=== PATIENT | female | born 1995 | race Caucasian/White ===

== ENCOUNTER 2025-06-08 13:57 | Outpatient (CLI) | payer BC, SELFPAY ==
[2025-06-09 14:47] LABS: Strep B DNA Probe POSITIVE (Negative)
[2025-06-09 16:46] LABS: Strep B Susceptibility Needed? No
== END 2025-06-08 13:58 | disposition home or self-care (01) ==
LOC: NFLDREF 13:57
PROVIDERS: Visit Provider Midwife
DX: Z34.93 Encounter for supervision of normal pregnancy, unspecified, third trimester (principal)
CPT/HCPCS: 87081; 87653

== ENCOUNTER 2025-07-06 22:16 | Inpatient (IN) | payer BC, SELFPAY ==
[2025-07-06] VITALS (8 sets, daily range): BP systolic 135–139; BP diastolic 81–94; PULSE 77–84; RESP 16–20; TEMP 36.6–36.9; O2SAT 97–98; BMI 32.9
--- NOTE | 2025-07-06 17:31 | P.LDBA_ITS ---
Subjective History of Present Illness Narrative: David is a 30 yo at 40 3/7 weeks admitted to Labor and Delivery for PROM. Please see this for details. Specific Issues/Plans Tx at 30.2 weeks gestation from [facility]? BLIND WEIGHTS. It is a girl! Partner:?? Bob H&P completed by Pennie Belle on 06/14/25?? #Anxiety on lexapro 5mg # Migraines with aura using metoclopramide PRN ?? # Pelvic pain, seeing PT # GBS positive, review antibiotic recommendation in labor OB Labs: ? Blood type: A+, antibody screen negative. ? Hgb: 13.3, 11.8 (04/19) ? Platelets: 250 ? Hgb electrophoresis: normal Rubella: Immune ? Varicella: non immune-offer post RPR: non-reactive ? HBsAg: non-reactive ? Hep C: negative HIV: negative ? UC: negative GC/Chlamydia: negative/negative ? Pap: 01/24/2022 NILM Genetic screening: low risk, neg carrier 1hr gtt: 137? ? IMAGING: ? 1st trimester: ?11/22/24 Single IUP at 8w 1 d with CURTIS of 07/03/25 by US and LMP Anatomy scan: 02/18/25 Incomplete FAS follow up to better evaluate four chamber heart, LVOT, 3 vessel trachea view and cardiac situs. ? Others: 03/16/25 Single IUP at 24w 3d gestation. Follow up shows normal four chamber heart, LVOT, 3 vessel trachea view and cardiac situs. Pap due PP COVID: initial series, declined booster Flu: does not get flu shots Tdap:04/19/25 RSV: 06/08/2025 OB - Problem Based A/P Additional Plan (1) PROM (premature rupture of membranes): Status: Acute (2) Group B Streptococcus carrier, antepartum: Status: Acute (3) 40 weeks gestation of : Status: Acute (4) Anxiety: Status: Acute Plan ASSESSMENT:? 30 at 40.3 weeks gestation? complicated by:?Anxiety (on Lexapro), migraines, pelvic pain Labor type: Spontaneous, early labor? Category 1 FHR pattern.?? Labor complicated by: PROM with + GBS GBS positive? ? PLAN:? 1. Routine intrapartum cares as ordered. Continue with expectant management?at this time. Discussed 6 hours of expectant management and then considering augmentation due to GBS + status. Patient is agreeable, she prefers cytotec over pitocin. Recommended evaluating around 830 pm. 2. Monitoring per policy, intermittent? 3. Planning unmedicated . Desires water . Consent signed. Hep C negative. Candidate for analgesia of choice.?? 4. Patient encouraged to reposition and ambulate to promote physiologic labor and .? 5. GBS prophylaxis initiated for GBS positive status. Will treat with antibiotics per protocol. 6. Anticipate ? Delivery/Labor/Induction Plan Plan: expectant management OB Exam Physical Exam Vital signs: Pulse BP Pulse Ox 80 135/81 97 07/06/25 16:41 07/06/25 16:41 07/06/25 16:43 Narrative: Vitals Reviewed Constitutional:? Alert and oriented x3 HEENT:? Normocephalic, atraumatic Neck:? Supple Lungs:? Clear to auscultation bilaterally Heart:? Regular rate and rhythm, no murmur, rub or gallop Abdomen:? Soft, nontender, and gravid. Vertex by Alfred's, confirmed with cervical exam. Extremities:? No edema or erythema Cervix: 1.5 cm/50%/-2 station/vertex NST: 145 bpm/moderate variability/15x15 accelerations/no decelerations/contractions every 1-3 palpating mild Detailed Labor and Delivery Exam Patient Gravid: yes
[2025-07-06 17:49] LABS: Hematocrit* 38.5 % (33.0-51.0); Hemoglobin* 13.1 gm/dL (12.0-16.0); Immature Granulocytes Abs Auto 0.01 K/uL (0.00-0.30); Immature Granulocytes Pct Auto 0.1 %; Mean Corpuscular HGB Conc 34 gm/dL (32-36); Mean Corpuscular Hemoglobin 32 pg (26-34); Mean Corpuscular Volume 93 fL (80-100); RDW Coefficient of Variation % 12.0 % (11.5-15.5); Red Blood Count* 4.14 m/uL (4.00-5.20); White Blood Count* 8.91 K/uL (4.50-11.00)
[2025-07-06 17:52] LABS: Lymphocytes Absolute Auto 1.40 K/uL (0.90-2.90); Slide Review Reflex No
[2025-07-06] MEDS: LACTATED RINGERS 1000 ML 1,000 ML 125 ML IV (17:58)
[2025-07-06] MEDS: AMPICILLIN 2 GM in 0.9 % SODIUM CHLORIDE Mini-bag 100 ML IVPB (17:59)
[2025-07-06] MEDS: AMPICILLIN 1 GM in 0.9 % SODIUM CHLORIDE Mini-bag 100 ML IVPB (21:53)
[2025-07-06] MEDS: SODIUM CHLORIDE 0.9 % (FLUSH) 10 ML SYRINGE IVF (21:53)
[2025-07-07] VITALS (44 sets, daily range): BP systolic 115–150; BP diastolic 67–95; PULSE 70–116; RESP 16–20; TEMP 36.5–37.1; O2SAT 97–100
[2025-07-07] MEDS: ACETAMINOPHEN 500 MG TABLET 1000 MG PO (01:10)
[2025-07-07] MEDS: SODIUM CHLORIDE 0.9 % (FLUSH) 10 ML SYRINGE IVF ×2 (02:14→06:32)
[2025-07-07] MEDS: AMPICILLIN 1 GM in 0.9 % SODIUM CHLORIDE Mini-bag 100 ML IVPB ×3 (02:14→10:26)
[2025-07-07] MEDS: OXYTOCIN 30 unit/500 ML in NS 30 UNIT/500 ML BAG IVPB (07:19)
--- NOTE | 2025-07-07 09:05 | PM.OBPNL ---
Subjective Time Seen by Provider: 08:50 Date Seen: 07/07/25 Narrative: David received 2 doses of Cytotec overnight but baby showed some signs of not tolerating with variables and early decelerations so the decision was made to discontinue and switch to IV Pitocin titration. This was started at 0720 this morning. She continued to have tata and variables with most contractions but did continue to have good variability and accelerations. Position changes did improve but not resolve the tracing so the decision was made to discontinue the Pitocin for now. Encouraged labor warm up of So circuit to help promote positioning. She is feeling most of her contractions in her back so potentially a better position could improve the tracing. Will continue to monitor the strip and restart the Pitocin titration when it improves. She continues to leak clear fluid. We discussed the possibility of a delivery if we are unable to augment but that it is not needed at this time. Objective Vital Signs: Last Vital Signs Temp 98.2 F 07/07/25 08:30 Pulse 80 07/07/25 07:26 Resp 16 07/07/25 04:15 BP 137/75 07/07/25 07:26 Pulse Ox 98 07/07/25 09:03 Contractions Monitor mode: External Contraction pattern: Irregular Assessment Assessment: early labor Amniotic Membrane Status: SROM Status: Category ll Heart Rate Baseline: 130 Professional Benefits Sales Consultant Variability: Moderate (6-25) Monitor Accelerations: Present Monitor Decelerations: Variable (and early ) Plan Plan: ASSESSMENT:? 31 at 40.4 weeks gestation? complicated by:?Anxiety (on Lexapro), migraines, pelvic pain Labor type: Early labor, PROM > 12 hours Category 2 FHR pattern.?? Labor complicated by: PROM with + GBS, intolerance to augmentation GBS positive? ? PLAN:? 1. Routine intrapartum cares as ordered. Pitocin titration discontinued at this time due to FHR tracing. Encouraged circuit and restart Pitocin when able. Reviewed increased risk for delivery given the current FHR tracing and difficulty augmenting. 2. Monitoring continuous. 3. Planning unmedicated but considering an epidural. Candidate for analgesia of choice.?? 4. Patient encouraged to reposition and ambulate to promote physiologic labor and .? 5. Continue GBS prophylaxis for GBS positive status per protocol. 6. Anticipate ?
--- NOTE | 2025-07-07 12:39 | P.OBPN_ITS ---
Subjective Time Seen by Provider: 12:30 Date Seen: 07/07/25 Narrative: David is a G1 at 40w3d here status post SROM 07/06 at 1430. Labor is being augmented. Slow progress. strip has normal rate and moderate variablility but many variable decels and more recently lates. Pitocin has been started twice and turned off twice at only 2mL/hr d/t intolerance. David is having some back labor now and appreciates hip squeeze and conterpressure as well as holding 's hand through contractions. She is still able to have conversation with just momentary pauses for contractions. Movie Critic requested cervical check to see progress considering status and duration of rupture. She is agreeable. ADEN Toth Objective Exam: Objective: Constitutional: Alert and oriented x3, mild distress, coping well Vital signs stable, see nurse documentation Abdomen: gravid, contractions palpate moderate and soft between Cervix: 2 cm/90%/-2 station/vertex NST: 135 bpm/ moderate variability/accelerations present/variable and early decelerations/contractions irregular- not monitoring well. 4-8min? Vital Signs: Last Vital Signs Temp 98.2 F 07/07/25 12:13 Pulse 83 07/07/25 12:13 Resp 16 07/07/25 04:15 BP 138/84 07/07/25 12:13 Pulse Ox 99 07/07/25 12:06 Comments: Anterior fontanelle palpated near maternal pubic bone. No sutures palpated. Suspect OP and ascynclitic position. Contractions Monitor mode: External Contraction pattern: Irregular Contraction intensity: Moderate Pitocin Rate (mU/min): 0 Assessment Assessment: induction ongoing Status: Category ll Heart Rate Baseline: 140 Mcfp Variability: Moderate (6-25) Monitor Accelerations: Present Tracing Comments: Moderate variability. Most contractions have variable decelerations. Some late decelerations seen this morning as well. Labor Progress: Minimal. Slight cervical change. 22 hours since SROM. No s/s infection. Maternal Status: Coping well Plan Plan: Plan ASSESSMENT:? 30 at 40.3 weeks gestation? complicated by:?Anxiety (on Lexapro), migraines, pelvic pain Labor type: Spontaneous, early labor? Category 2 FHR pattern.?? Labor complicated by: PROM with + GBS GBS positive? Prolonged rupture of membranes ? PLAN:? 1. Discussed possibility of c- section and answered questions as baby doesn't seem to be tolerating labor augmentation and duration of rupture. Options to wait and see what happens vs. reattempt pitocin vs. now. Patient elects to reattempt pitocin. 2. Nurse to assist with more position changes including inversion to see if baby can get in better position 3. EFM strip is decent and IV pitocin attempted again 4. Continuous monitoring 5. Continue antibiotics every 4 hours for GBS treatment 6. on call pharmacy technician OB, Dr. Mitchell updated and consulted on case 7. Planning unmedicated . Desires water . Consent signed. Hep C negative. Candidate for analgesia of choice.?? 8. Anticipate ?but aware that may need I, Jennifer Zepeda, MARTI, CNM, was present for visit and have reviewed and agree with documentation by the Certified Nurse Midwifery Student.?
--- NOTE | 2025-07-07 14:34 | PM.OBPNL ---
Subjective Time Seen by Provider: 14:30 Date Seen: 07/07/25 Narrative: We have continued to attempt labor augmentation. She is melly some and feeling them in her back but is able to talk through them and feels they have not increased significantly over the coarse of the day. Offered SVE but she declines as she is not feeling that anything has changed significantly. We have now tried to augment with Pitocin without success three times. Each time once we increase to 2mU/hr she develops recurrent decelerations and most recently many were late decelerations. We again reviewed the option to continue to try to augment labor with position changes to promote a better position and FHR tracing vs a non emergent delivery. Risks and benefits of each were reviewed and questions answered. She would like to proceed with a section. Dr. Mitchell was consulted, report given, and she will see the patient at this time to evaluate. Objective Vital Signs: Last Vital Signs Temp 98.7 F 07/07/25 13:02 Pulse 75 07/07/25 13:02 Resp 16 07/07/25 04:15 BP 132/80 07/07/25 13:02 Pulse Ox 97 07/07/25 12:52 Contractions Monitor mode: External Contraction Frequency: 2-5 Contraction pattern: Irregular Contraction intensity: Moderate Assessment Assessment: early labor Amniotic Membrane Status: SROM Status: Category ll Heart Rate Baseline: 130 Monitor Accelerations: Present Monitor Decelerations: Late (and variables) Plan Plan: ASSESSMENT:? 31 at 40.4 weeks gestation? complicated by:?Anxiety (on Lexapro), migraines, pelvic pain Labor type: Early labor, PROM >24 hrs Category 2 FHR pattern.?? Labor complicated by: PROM with + GBS, intolerance to augmentation with late decelerations GBS positive, well treated? ? PLAN:? 1. Reviewed option for continuing to attempt to augment labor vs a section. She would like to proceed with a delivery. Dr. Mitchell consulted and will assume care.
[2025-07-07] MEDS: LACTATED RINGERS 1000 ML 1,000 ML 125 ML IV (14:37)
[2025-07-07] MEDS: AZITHROMYCIN 500 MG in 0.9 % SODIUM CHLORIDE 250 ml 250 ML 255 MG IVPB (14:38)
--- NOTE | 2025-07-07 16:15 | PM.OBPRCCS ---
Procedure Date of procedure: 07/07/25 Pre-op diagnosis: intolerance of labor Prolonged rupture of membranes 40 weeks, 4 days gestational age Post-op diagnosis: same Procedure Done: Global Will [facility] bill your pro fee for this procedure?: Yes Blood Loss Measurement Type: QBL (825) Bakri Used: No IV fluids (mL): 1,400 Urine Output (mL): 200 Surgeon: Mercedes Mitchell MD Anesthesia Type: Spinal Findings: 1. Female , cephalic OP presentation, Apgars of 8 and 9, weight 3745 g 2. Normal appearance of uterus, bilateral tubes and ovaries Procedure Name: Primary low-transverse section Procedure Description: PROCEDURE IN DETAIL: Patient was taken to the operating room with IV running. She received cefazolin and azithromycin in preoperative prophylaxis. Spinal anesthesia was administered. Lopez catheter was inserted. She was prepped and draped in the usual sterile fashion. Anesthesia was tested and found to be adequate. A low-transverse skin incision was made with a scalpel and carried through to the underlying layer of fascia with the scalpel. The subcutaneous fat was dissected off the underlying fascia with Bovie. The fascia was nicked in the midline with a scalpel, and this incision was extended laterally with scissors. The rectus muscles were in the midline. Peritoneum was identified and entered bluntly. Bovie was used to widen this opening laterally. Jf O retractor was inserted and tightened down, providing excellent visualization of the lower uterine segment. The bladder reflection was found to be well below the planned site for hysterotomy. Low-transverse uterine incision was made with a scalpel. Incision was widened bluntly. The infant's head was grasped through the hysterotomy and delivered with the help of fundal pressure. The remainder of the body delivered without incident. Cord was clamped and cut after 30 seconds. was handed off to attending nurses. The placenta was delivered with gentle traction on the cord. The uterus was exteriorized and cleaned of all clots and debris with the dry lap pad. Initially, some uterine atony was noted, which was addressed with IV Pitocin, a single dose of 0.2 mg of IM Methergine, and 1 g of tranexamic acid. The hysterotomy was reapproximated with 0 Vicryl in a running, locked fashion. Second layer of the same suture was used in imbricating fashion to obtain hemostasis. The adnexa were examined and noted to be normal in appearance. The cul-de-sac was cleansed with laparotomy sponge, removing clots and debris. The uterus was returned to the abdomen. The pelvic gutters were cleansed with laparotomy sponge, removing clots and debris. The Jf O retractor was removed. The hysterotomy was reexamined and found to be hemostatic. The peritoneum was reapproximated with 2 0 Vicryl in a running fashion. The rectus muscles were examined and found to be hemostatic. The fascia was reapproximated with 0 Vicryl in a running fashion. Subcutaneous fat was irrigated and Bovie used on oozing vessels. The subcutaneous fat was reapproximated with 2 0 plain gut suture in an interrupted fashion. The skin was closed with a subcuticular stitch of 4-0 Monocryl. Surgical glue was applied above this. Patient tolerated procedure well was taken to recovery area in stable condition. Complications: None Pathology: specimen obtained, sent to pathology (Placenta) Surgery Debrief Performed: No Surgery Debrief Comment: Postoperative debrief was verbalized with OR staff, including a verification of pathology specimens to be sent as described above. Disposition: floor
--- NOTE | 2025-07-07 16:37 | P.ANES_ITS ---
Anesthesia Charges Start Date/Time Anesthesia Start Date: 07/07/25 Anesthesia Start Time: 15:03 Stop Date/Time Anesthesia Stop Date: 07/07/25 Anesthesia Stop Time: 16:27 Summary Emergency: FINANCIAL RECORDING CLERK Coding CPT Codes CPT Codes: ANESTH CS DELIVERY - 85356 ([id number]) P2 - PATIENT W/MILD SYST DISEASE, QZ - FINANCIAL RECORDING CLERK SVC W/O MOISTURE METER OPERATOR BY Additional Codes: Summary - Emergency: FINANCIAL RECORDING CLERK ([id number])
--- NOTE | 2025-07-07 16:37 | W.ANESCHARGE ---
Anesthesia Charges Start Date/Time Anesthesia Start Date: 07/07/25 Anesthesia Start Time: 15:03 Stop Date/Time Anesthesia Stop Date: 07/07/25 Anesthesia Stop Time: 16:27 Summary Emergency: MULTIMEDIA ENGINEER Coding CPT Codes CPT Codes: ANESTH CS DELIVERY - 49712 ([id number]) P2 - PATIENT W/MILD SYST DISEASE, QZ - MULTIMEDIA ENGINEER SVC W/O SACK FILLER BY Additional Codes: Summary - Emergency: MULTIMEDIA ENGINEER ([id number])
--- NOTE | 2025-07-07 16:38 | P.NB_ITS ---
Nerve Block Nerve Block Time Seen by Provider: 16:20 Date Seen: 07/07/25 Type of block requested by surgeon for post-operative analgesia: TAP Side: bilateral Time out performed: Yes Verification of patient name: Yes Verification of date of : Yes Name of person performing procedure: Bob Lindquist Continuous monitoring Was continuous monitoring of O2 sat, B/P, environmental monitoring specialist, recorded every 15 minutes?: Yes Procedure Checklist: sterile prep, needles and gloves Ultrasound guided. Images saved: Yes Medications given in 5ml increments after negative aspiration: Marcaine %: 0.25 mL: 30 Needle gauge: 22 and Exparel mL: 10 Needle gauge: 22 Patient tolerated procedure well: Yes Block Charges Block Charge (with Pro Fee): TAP Bilateral Use of Ultrasound Machine for Block: Yes- US Guidance/pain block
[2025-07-07 19:52] LABS: Hematocrit* 37.1 % (33.0-51.0); Hemoglobin* 12.6 gm/dL (12.0-16.0); Mean Corpuscular HGB Conc 34 gm/dL (32-36); Mean Corpuscular Hemoglobin 32 pg (26-34); Mean Corpuscular Volume 94 fL (80-100); Red Blood Count* 3.94 m/uL (4.00-5.20); White Blood Count* 13.42 K/uL (4.50-11.00)
[2025-07-07 20:01] LABS: Slide Review Reflex No
[2025-07-07 20:09] LABS: Blood Urea Nitrogen* 10 mg/dL (5-24); Creatinine* 0.6 mg/dL (0.5-1.5); Est. Creatinine Clearance* 112.38; Estimated Glomerular Filt Rate 123 ml/min
[2025-07-07 20:10] LABS: Alanine Aminotransferase* 19 U/L (4-35); Aspartate Amino Transferase* 36 U/L (12-35)
[2025-07-07] MEDS: ESCITALOPRAM 10 MG TABLET 5 MG PO (20:48)
[2025-07-07 21:47] LABS: Protein Creatinine Ratio Urine 0.18 (0-0.19)
[2025-07-08 00:13] VITALS: BP 125/77; PULSE 95; RESP 16; TEMP 37; O2SAT 97
[2025-07-08] MEDS: LANOLIN CREAM 1 APPLIC TOPICAL (01:05)
[2025-07-08 04:20] VITALS: BP 118/71; PULSE 90; RESP 16; TEMP 37.1; O2SAT 98
[2025-07-08 06:31] LABS: Hematocrit* 34.2 % (33.0-51.0); Hemoglobin* 11.5 gm/dL (12.0-16.0); Immature Granulocytes Abs Auto 0.02 K/uL (0.00-0.30); Immature Granulocytes Pct Auto 0.2 %; Mean Corpuscular HGB Conc 34 gm/dL (32-36); Mean Corpuscular Hemoglobin 32 pg (26-34); Mean Corpuscular Volume 96 fL (80-100); RDW Coefficient of Variation % 12.1 % (11.5-15.5); Red Blood Count* 3.58 m/uL (4.00-5.20); White Blood Count* 10.73 K/uL (4.50-11.00)
[2025-07-08 06:40] LABS: Lymphocytes Absolute Auto 0.90 K/uL (0.90-2.90); Slide Review Reflex No
[2025-07-08 06:57] LABS: Alanine Aminotransferase* 14 U/L (4-35); Aspartate Amino Transferase* 34 U/L (12-35); Blood Urea Nitrogen* 10 mg/dL (5-24); Creatinine* 0.6 mg/dL (0.5-1.5); Est. Creatinine Clearance* 112.38; Estimated Glomerular Filt Rate 123 ml/min
[2025-07-08 08:29] VITALS: BP 118/79; PULSE 99; RESP 16; TEMP 36.6; O2SAT 98
[2025-07-08] MEDS: DOCUSATE SODIUM 100 MG CAPSULE PO (09:53)
--- NOTE | 2025-07-08 13:11 | PM.OBPNVD1 ---
OB - PN:Subj Subjective Time Seen by Provider: 12:49 Date Seen: 07/08/25 Patient comments OB post-: no complaints, pain well controlled and tolerating diet [place] infant status: and doing well [place] feeding status: exclusively Narrative: Day 1:? Delivery at 40 and 4/7 weeks.? ?? Complications:? none? David feels well.? Her pain is well controlled with current medications.? She has no new complaints.? Urinary output is adequate and she is voiding without difficulty.? Has a good appetite, is tolerating a general diet, is passing flatus, and has not had a bowel movement.? Has moderate amount of rubra lochia.? She is ambulating well.?Pt requests changing administration time for Lexapro to hs from qAM, as she normally takes it before bed. OB - PN: Obj Exam Physical Exam: Vital signs: Temp Pulse Resp BP Pulse Ox O2 Del Method 97.8 F 99 16 118/79 98 Room Air 07/08/25 08:29 07/08/25 08:29 07/08/25 08:29 07/08/25 08:29 07/08/25 08:29 07/08/25 08:29 Narrative: GENERAL APPEARANCE:? normal affect, alert, no distress? MOOD:? appropriate? CHEST:? clear to auscultation and percussion? HEART:? regular rate and rhythm? BREASTS: soft, nontender, no erythema, nipples intact? ABDOMEN:? soft, non-tender the uterine fundus is firm and is appropriate for the stage of recovery. Incision is covered by a dressing, which is C/D/I.? PERINEUM:? mild edema of the perineum.? EXTREMITIES:? normal and no edema? OB - PN: Obj Data Labs Labs: Laboratory Results - last 24 hr 07/07/25 07/07/25 07/08/25 19:36 20:44 05:56 WBC 13.42 H 10.73 RBC 3.94 L 3.58 L Hgb 12.6 11.5 L Hct 37.1 34.2 MCV 94 96 MCH 32 32 MCHC 34 34 RDW Coeff of Keith 12.1 Plt Count 202 194 Neut % (Auto) 81.3 H Lymph % (Auto) 8.7 L [place] % (Auto) 8.4 Eos % (Auto) 1.3 Baso % (Auto) 0.1 Neut # (Auto) 8.70 H Lymph # (Auto) 0.90 [place] # (Auto) 0.90 Eos # (Auto) 0.14 Baso # (Auto) 0.01 Abs Immat Gran (auto) 0.02 Imm/Tot Granulo (auto) 0.2 BUN 10 10 Creatinine 0.6 0.6 Estimated Creat Clear 112.38 112.38 Estimated GFR 123 123 AST 36 H 34 ALT 19 14 Urine Creatinine 82.8 Protein/Creatinin Ratio 0.18 Urine Total Protein 15 OB - PN: A/P Delivery Assessment and Plan (1) care following delivery: Status: Acute Assessment and Plan: 30 year old on day 1.? 1. cares.? 2. Anticipate discharge tomorrow.? (2) Lactating mother: Status: Acute (3) Anxiety: Status: Acute Plan day: 1 Plan: routine care
[2025-07-08 14:16] VITALS: BP 111/71; PULSE 88; RESP 16; O2SAT 98
[2025-07-08] MEDS: ESCITALOPRAM 5 MG 5 EACH PO (20:50)
[2025-07-08 20:58] VITALS: BP 130/83; PULSE 84; RESP 18; TEMP 36.8; O2SAT 98
[2025-07-09 03:04] VITALS: BP 117/75; PULSE 79; RESP 18; TEMP 36.6; O2SAT 98
[2025-07-09] MEDS: ACETAMINOPHEN 500 MG TABLET 1000 MG PO (03:09)
[2025-07-09 08:30] VITALS: BP 119/78; PULSE 80; RESP 16; TEMP 36.9; O2SAT 99
--- NOTE | 2025-07-09 08:53 | P.OBPN_ITS ---
OB - PN:Subj Subjective Date Seen: 07/09/25 Patient comments OB post-: no complaints, pain well controlled, tolerating diet and flatus present [place] status: and doing well [place] feeding status: exclusively Narrative: David feels well.? Her pain is well controlled with current medications.? She has no new complaints.? Urinary output is adequate and she is voiding wit hout difficulty.? Has a good appetite, is tolerating a general diet, is passing flatus, and has not had a bowel movement.? Has scant amount of rubra lochia.? She is ambulating well.?She is and feels it is going ok but baby is sleepy for some feeds. Has concerns about feedings and babies weight loss. She would like to stay until tomorrow for additional support. Blood pressures have been stable on her current dose of Nifedipine. OB - PN: Obj Exam Physical Exam: Vital signs: Temp Pulse Resp BP Pulse Ox O2 Del Method 97.9 F 79 18 117/75 98 Room Air 07/09/25 03:04 07/09/25 03:04 07/09/25 03:04 07/09/25 03:04 07/09/25 03:04 07/09/25 03:04 Narrative: GENERAL APPEARANCE:? normal affect, alert, no distress? MOOD:? appropriate? CHEST:? clear to auscultation and percussion? HEART:? regular rate and rhythm? BREASTS: soft, nontender, no erythema, nipples intact? ABDOMEN:? soft, non-tender the uterine fundus is U/2 and is appropriate for the stage of recovery. Incision well approximated without drainage or erythema.? EXTREMITIES:? normal and no edema? OB - PN: Obj Data Labs Labs: Laboratory Results - last 24 hr 07/06/25 17:30 RPR Screen Non Reactive OB - PN: A/P Delivery Assessment and Plan (1) care following delivery: Status: Acute (2) Lactating mother: Status: Acute (3) Anxiety: Status: Acute (4) Gestational hypertension: Status: Acute Plan day: 2 Plan: routine care Comments: Anticipate discharge home tomorrow.
[2025-07-09] MEDS: DOCUSATE SODIUM 100 MG CAPSULE PO (10:02)
[2025-07-09] MEDS: IBUPROFEN 600 MG TABLET PO ×2 (16:41→22:16)
[2025-07-09 17:00] VITALS: BP 129/77; PULSE 71; RESP 16; TEMP 36.9; O2SAT 98
[2025-07-09 20:11] VITALS: BP 126/78; PULSE 80; RESP 16; TEMP 36.5; O2SAT 98
[2025-07-09] MEDS: ESCITALOPRAM 5 MG 5 EACH PO (21:27)
[2025-07-09 23:37] VITALS: BP 117/80; PULSE 80; RESP 16; TEMP 36.6; O2SAT 98
[2025-07-10 05:14] VITALS: BP 120/83; PULSE 71; RESP 14; TEMP 36.7; O2SAT 97
[2025-07-10] MEDS: IBUPROFEN 600 MG TABLET PO (09:27)
[2025-07-10] MEDS: DOCUSATE SODIUM 100 MG CAPSULE PO (09:27)
[2025-07-10 09:30] VITALS: BP 127/81; PULSE 72; RESP 16; TEMP 37; O2SAT 98
--- NOTE | 2025-07-10 12:46 | P.DS_ITS ---
DS: Providers Provider Date Seen: 07/10/25 Date of admission: 07/06/25 22:16 Primary care physician: Not a Local Provider Admitting Clinician: Michelle Das CNM Consults: 07/07/25 14:34 Consult to Physician [CONS] Routine Comment: Consulting Provider: Mercedes Mitchell Has provider been notified: Yes Attending Physician on discharge: Michelle Das CNM Date of Discharge: 07/10/25 DS: Diagnosis Discharge Diagnosis (1) Gestational hypertension: Status: Acute (2) Lactating mother: Status: Acute (3) care following delivery: Status: Acute (4) Anxiety: Status: Acute (5) Migraine with aura: Status: Acute Exam Narrative: Exam Narrative: GENERAL APPEARANCE:? normal affect, alert, no distress? MOOD:? appropriate? CHEST:? clear to auscultation and percussion? HEART:? regular rate and rhythm? BREASTS: soft, nontender, no erythema, nipples intact? ABDOMEN:? soft, non-tender the uterine fundus is u/3 and is appropriate for the stage of recovery. Incision well approximated without drainage, erythema, or edema.? EXTREMITIES:? normal and no edema? Const: Vital Signs, click to edit/add: Vital Signs - 24 hr 07/09/25 17:00 07/09/25 20:11 07/09/25 23:37 Temperature 98.4 F 97.7 F 97.9 F Pulse Rate [Pulse Oximeter] 71 80 80 Respiratory Rate 16 16 16 Blood Pressure [Ri ght Arm] 129/77 126/78 117/80 Pulse Oximetry 98 98 98 Oxygen Delivery Me thod Room Air Room Air Room Air 07/10/25 05:14 07/10/25 09:30 Temperature 98.0 F 98.6 F Pulse Rate [Pulse Oximeter] 71 72 Respiratory Rate 14 16 Blood Pressure [Ri ght Arm] 120/83 127/81 Pulse Oximetry 97 98 Oxygen Delivery Me thod Room Air Room Air Documenting provider has reviewed patient's vital signs: yes OB - DS: Summary Hospital Course Hospital Course: David is a 30 y.o. G 1 P 1 who was admitted to [facility]OM. ?She had a section for intolerance that was uncomplicated. The patient feels well. ?The pain is well controlled with current medications. She has not taken Oxycodone and declines the need for a prescription.?She has no new complaints. ?She is breast feeding and reports things are going ok. States that some feeds are good but other she is too sleep. She has a f/u appointment this week. the patient has done well.? Vitals have been stable on Nifedipine. She will be sent a prescription for a blood pressure cuff as we are out on the unit. She should check her blood pressure at home twice a day.? She has remained afebrile.? Has a good appetite, is tolerating a general diet. ?She is voiding without difficulty.? She is passing gas and has not had a bowel movement.? She is ambulating and denies any dizziness.? Has small amount of rubra lochia. She is uncertain what she is planning for prevention. considering condoms but also reviewed other options. Peripartum Data Infant delivery method: Primary C/S; Labored Procedures: Procedures Operation Date: 07/07/25 15:00 Actual Procedure Side Surgeon p Section Not Applicable Mercedes Mitchell MD complications: none [place] Gender: Female Infant Discharge Plan: Home Status at Discharge Functional status at discharge: independent ambulation Overall status at discharge: patient is progressing back to baseline Time Spent with Patient Time attestation: Total time spent providing and/or coordinating discharge services: Discharge Plan Discharge Disposition: Home, Self-Care Date of Admission: 07/06/25 22:16 Attending Provider on Discharge: Jennifer Zepeda Consulting Providers: Mercedes Mitchell Primary Care Provider: Provider,Not a Local Condition: Stable Anticipated Discharge Date/Time: 07/10/25 14:00 Discharge Medications: New docusate sodium 100 mg Capsule 100 mg PO DAILY Qty: 120 0RF Rx Instructions: Take 1-2 tablets daily as needed for constipation. ibuprofen 600 mg Tablet 600 mg PO Q6H PRN (Reason: Pain) Qty: 120 0RF nifedipine 30 mg Tablet Extended Release 30 mg PO BID Qty: 120 0RF (DME) Blood Pressure Cuff Misc See Rx Instructions .Route Qty: 1 0RF Rx Instructions: As directed Continued metoclopramide HCl 5 mg tablet 5 mg PO ONCE escitalopram oxalate 5 mg tablet 5 mg PO QDAY cholecalciferol (vitamin D3) 100 mcg (4,000 unit) tablet 100 mcg PO QDAY One-A-Day -1 27 mg iron- 800 mcg-235 mg capsule 1 cap PO DAILY Tylenol Extra Strength 500 mg powder in packet 500 mg PO Q6H PRN Discontinued Unisom (doxylamine) 25 mg tablet 25 mg PO QHS PRN Discharge Orders: Discharge Order (Routine); Ordered 07/10/25 Ordered By: Jennifer Zepeda Patient Education: Bupivacaine Liposome (By injection), OB High Blood Pressure DC, OB /Breast Feeding Additional Instructions: Discharge instructions were reviewed with the patient including signs and symptoms of infection and home going medications Lifting Restrictions: 20 pounds for 6 weeks No not submerge incision under water X 2 weeks? Nothing vaginally for 6 weeks: no tampons or intercourse Do not drive while taking narcotic pain medication(s) Off Work or School for 8 weeks Symptoms to report to doctor: * Bleeding that saturates more than one pad per hour * Passing clots larger than the size of a golf ball * Pain not relieved by prescribed medication * Fever above 100.4 degrees Fahrenheit * A foul vaginal odor * Difficulty in emotions, mood, and functions * Thoughts of hurting yourself and/or * Painful, reddened area in your breast * Any drainage, redness, or tenderness in your IV/epidural site * Severe headache that doesn't improve after taking medications * Changes in vision, including temporary loss of vision, blurred vision, and/or light sensitivity * Upper abdominal pain (usually under ribs on the right side) * Decrease in urination or painful, frequent urinating * Chest pain * Shortness of breath * Tenderness or pain with redness and/swelling in the calf(s) of your leg [facility] for a BP and medication check in 3-5 days Call with BP greater than or equal to 160/110 2-week visit: incision check, blood pressure check, discuss infant feeding concerns, review control options and screen for anxiety/depression. 6-week visit for an annual exam. consultation services are available to all mothers and babies for the first year after delivery.? To make an appointment, please call [phone]. Activity Level: No strenuous activity Discharge Diet: Regular Follow Up Appointments: Provider,Not a Local [Primary Care Provider, Family Practice] [facility] [Provider Group] Forms: MyHealth Info Instructions
== END 2025-07-10 14:55 | disposition home or self-care (01) | DRG 540 ==
LOC: OB OUT 22:16 → OB 22:16
PROVIDERS: Obstetrics & Gynecology; Admitting Provider Advanced Practice Midwife; Visit Provider Advanced Practice Midwife
PROC: 10D00Z1 Extraction of Products of Conception, Low, Open Approach (ICD-10-PCS; CPT 59514; principal; 2025-07-07 15:00)
DX: O42.12 Full-term premature rupture of membranes, onset of labor more than 24 hours following rupture (principal); O76 Abnormality in fetal heart rate and rhythm complicating labor and delivery; O13.5 Gestational [pregnancy-induced] hypertension without significant proteinuria, complicating the puerperium; G89.18 Other acute postprocedural pain; O99.820 Streptococcus B carrier state complicating pregnancy; O99.344 Other mental disorders complicating childbirth; G43.109 Migraine with aura, not intractable, without status migrainosus; F41.9 Anxiety disorder, unspecified; Z3A.40 40 weeks gestation of pregnancy; Z37.0 Single live birth
CPT/HCPCS: 01961; 36415; 64488; 76815; 76942; 82565; 82570; 84112; 84156; 84450; 84460; 84520; 85018; 85025; 85027; 86592; 86850; 86900; 86901; 88307; 99140; G0463; A4314; A9270; J0290; J0456; J0665; J0666; J0690; J1885; J2210; J2274; J2371; J2405; J2590; J7050; J7120

== ENCOUNTER 2025-07-14 14:23 | Outpatient (CLI) | payer BC, SELFPAY ==
--- NOTE | 2025-07-14 16:15 | W.PM.LAC.MC ---
Consult Note - Mom Date of Visit Date of visit: 07/14/25 Reason for consultation: Assistance Needed Visit Code: Visit Patient's Information Phone number: [phone] : 1 Para: 1 Allergies No Known Drug Allergies Allergy (Verified 07/06/25 16:30) Mother's Medical History: Medical History (Updated 07/13/25 @ 00:01 by Background [place]) Group B Streptococcus carrier, antepartum ?O99.820 - Streptococcus B carrier state complicating (ICD-10) Migraine with aura ?G43.109 - Migraine with aura, not intractable, without status migrainosus (ICD-10) Anxiety ?F41.9 - Anxiety disorder, unspecified (ICD-10) Work Plans: return to work in September, maybe December Delivery Information Delivery type: Primary C/S; Labored Gestational Age: 40+4 Gestational Weight For Age: AGA Weight: 3.745 kg Discharge Weight: 3.615 kg Percentage weight loss: 3.47 Baby's Information Baby's Age at Visit: 7 days Baby's Provider or Clinic: [facility], missed first clinic appt so hasn't been seen yet Jaundice: No Past Experience Past Experience: No Current Frequency of Day Feedings: every 2-3 hrs day and night Both Breasts: Yes Suck: ok not sure she's getting anyting Latch: shallow Length of Time: 10-15 minutes Goals: not sure yet Pumping Pumping: Yes Quantity Pumped: 4-6 oz if not feed first, pumping ea feeding now and offering supplement Supplementing EBM Supplement: Yes (1-3 oz ea feeding) Formula Supplement: No Baby Elimination Number of Wet Diapers a Day: ea feeding Number of BM a Day: almost ea feeding, 6+/day, yellow, seedy Breast/Nipple Condition Breast Information: Breasts are symmetrical with rounded lower quadrants, intramammary distance is less than 1.5 inches. No erythema. Nipples are supple, everted prior to feeding. Breast Shape: Round and Firm Engorgement: No Maternal Nipple Condition - Left: Common Nipple Maternal Nipple Condition - Right: Common Nipple Sore Nipples: No Baby Assessment Skin: Normal Tongue/frenulum: Normal/elastic Palate: Average Lips: Relaxed and Symmetrical Jaw Alignment: Symmetrical Mucosa: [place], moist Onsite Observation Pre-Feed weight: 3.608 kg Post-Feed weight: 3.668 kg Milk Transferred (mL): 60 Position: Cross cradle Attachment/latch-on achieved: Easily Suck pattern: Suck burst and normal rest Swallow: Audible, consistent and Gulping Behavior following feed: Alert, content Pre-Nursing Left Nipple: Within Normal Limits Pre-Nursing Right Nipple: Within Normal Limits Post-Nursing Left Nipple: Within Normal Limits Post-Nursing Right Nipple: Within Normal Limits Assessments/Interventions Assessments/Interventions: Babe latched to mom's LEFT breast, latched easily with guidance and stayed nursing for 15 minutes. Transferred 56 ml of milk Babe then latched to mom's RIGHT breast, latched easily independently by mom and nursed for another 5 minutes. Transferred 4 ml of milk. Total milk transferred: 60 ml and babe content Babe needed gentle support behind base of neck/shoulder blades to stay latched. Mom reports she was not getting baby this deeply latched at home and can definitely feel the difference in the latch and the strength of the pull while baby is nursing. Babe very content after feeding Answered questions about feeding routine, if/when to pump if baby is nursing more often and what that looks like compared to just pumping Education provided: Early feeding cues to maximize timing of latching, Asymmetric latch technique for wide/deep latch to increase milk, Transfer for baby and increase comfort for mom, Supply/demand nature of milk supply, Need for frequent stimulation/milk removal, Alternative feeding methods (SNS, cup, finger feeding, bottling), Pumping for milk management and Milk collection, storage Follow-Up Suggested follow up: Appointment as needed Time Spent Time spent with patient (min): 75 Meds Home Medications and Allergies Home Medications ?Medication ?Instructions ?Recorded ?Confirmed ?Type acetaminophen 500 mg oral powder 500 mg PO Q6H PRN 04/26/25 07/06/25 History packet (Tylenol Extra Strength) cholecalciferol (vitamin D3) 100 100 mcg PO QDAY 04/26/25 07/06/25 History mcg (4,000 unit) tablet escitalopram oxalate 5 mg tablet 5 mg PO QDAY 04/26/25 07/06/25 History metoclopramide HCl 5 mg tablet 5 mg PO ONCE 04/26/25 07/06/25 History vits 168-iron 27 mg-folic 1 cap PO DAILY 04/26/25 07/07/25 History acid 800 mcg-omega3 235 mg capsule (One-A-Day -1) docusate sodium 100 mg capsule 100 mg PO DAILY #120 caps 07/10/25 Rx ibuprofen 600 mg tablet 600 mg PO Q6H PRN Pain #120 tabs 07/10/25 Rx miscellaneous medical supply #1 ea 07/10/25 Rx (Blood Pressure Cuff) nifedipine 30 mg tablet,extended 30 mg PO BID #120 tabs 07/10/25 Rx release Allergies Allergy/AdvReac Type Severity Reaction Status Date / Time No Known Drug Allergies Allergy Verified 07/06/25 16:30
--- NOTE | 2025-07-14 16:22 | W.PM.LAC.BC ---
Consult Note - Baby Date of Visit Reason for consultation: Other (erroneous note created) Mother's Information Para: 1
== END 2025-07-14 14:24 | disposition home or self-care (01) ==
PROVIDERS: Visit Provider Advanced Practice Midwife
DX: Z39.1 Encounter for care and examination of lactating mother (principal)
CPT/HCPCS: G0463